=== PATIENT | female | born 1995 ===

== ENCOUNTER 2020-04-01 18:52 | Emergency (ER) | payer OTHER ==
[2020-04-01 19:28] VITALS: BP 129/74
--- NOTE | 2020-04-01 20:03 | ER Document Report ---
ED Medical Screen (RME) - General Chief Complaint: Abscess Stated Complaint: SORE THROAT/ABSCESS ON TONCIL Time Seen by Provider: 04/01/20 19:53 Mode of Arrival: Ambulatory Information source: Patient Notes: HPI; 24-year-old female presents to the emergency room complaining of possible right sided peritonsillar abscess. States she was seen at [facility] twice today on her first visit they gave her IV antibiotics and IV fluids discharged home on oral antibiotics. States she is unable to tolerate the oral antibiotics. Went back to [facility] due to the nausea and vomiting she was referred to the emergency room for further evaluation of peritonsillar abscess. Unsure what antibiotic she is taking. PE: Alert and oriented x3. Mild distress noted. Lungs: Clear to auscultation wit hout rales, rhonchi, wheezes. Heart: Regular rate rhythm without murmurs, rubs, gallops. There is inflammation of the right posterior tonsillar region with a questionable abscess noted. There is no shift of the uvula. There is no trismus. Patient is talking in full sentences. Managing her own secretions. States is able to swallow but is painful. I have greeted and performed a rapid initial assessment of this patient. A comprehensive ED assessment and evaluation of the patient, analysis of test results and completion of the medical decision making process will be conducted by additional ED providers. I have specifically instructed the patient or family members with the patient to immediately return to any nursing staff should anything change in the patient's condition or with their chief complaint. TRAVEL OUTSIDE OF THE [place] IN LAST 30 DAYS: No - Related Data Allergies/Adverse Reactions: amoxicillin [From Augmentin] Allergy (Verified 04/01/20 19:52) clavulanic acid [From Augmentin] Allergy (Verified 04/01/20 19:52) Past Medical History - Social History Frequency of alcohol use: None Drug Abuse: None Physical Exam - Vital signs Vitals: Temp Pulse Resp BP Pulse Ox 99.0 F 118 H 20 129/74 H 99 04/01/20 19:28 04/01/20 19:28 04/01/20 19:28 04/01/20 19:28 04/01/20 19:28 Course - Vital Signs Vital signs: Temp Pulse Resp BP Pulse Ox 99.0 F 118 H 20 129/74 H 99 04/01/20 19:28 04/01/20 19:28 04/01/20 19:28 04/01/20 19:28 04/01/20 19:28
[2020-04-01 20:37] LABS: HEMATOCRIT 46.3 % (36.0-47.0); HEMOGLOBIN 15.7 g/dL (12.0-15.5); MEAN CORPUSCULAR HEMOGLOBIN 32.2 pg (27.0-33.4); MEAN CORPUSCULAR HGB CONC 33.9 g/dL (32.0-36.0); MEAN CORPUSCULAR VOLUME 95 fl (80-97); PLATELET COUNT 250 10^3/uL (150-450); RED BLOOD COUNT 4.88 10^6/uL (3.72-5.28); RED CELL DISTRIBUTION WIDTH 13.2 % (11.5-14.0); WHITE BLOOD COUNT 11.6 10^3/uL (4.0-10.5)
[2020-04-01 21:02] LABS: ABSOLUTE LYMPHOCYTES# (MANUAL) 0.8 10^3/uL (0.5-4.7); ABSOLUTE MONOCYTES # (MANUAL) 0.2 10^3/uL (0.1-1.4); BASOPHILS % (MANUAL) 0 % (0-2); EOSINOPHILS % (MANUAL) 0 % (0-6); LYMPHOCYTES % (MANUAL) 7 % (13-45); MONOCYTES % (MANUAL) 2 % (3-13); RBC MORPHOLOGY COMMENT NORMO-CYTIC/CHROMIC; SEGMENTED NEUTROPHILS % (MAN) 91 % (42-78); TOTAL CELLS COUNTED 100
[2020-04-01 21:03] LABS: ALBUMIN 4.7 g/dL (3.5-5.0); ALKALINE PHOSPHATASE 45 U/L (38-126); ANION GAP 14 (5-19); ASPARTATE AMINO TRANSFERASE 25 U/L (14-36); BILIRUBIN,DIRECT 0.3 mg/dL (0.0-0.4); BILIRUBIN,TOTAL 0.8 mg/dL (0.2-1.3); BLOOD UREA NITROGEN 12 mg/dL (7-20); CALCIUM 9.4 mg/dL (8.4-10.2); CARBON DIOXIDE 23 mmol/L (22-30); CHLORIDE 101 mmol/L (98-107); GLUCOSE 106 mg/dL (75-110); PLATELET COMMENT ADEQUATE; POTASSIUM 4.2 mmol/L (3.6-5.0); TOTAL PROTEIN 7.4 g/dL (6.3-8.2)
== END 2020-04-01 23:04 | disposition left against medical advice (07) ==
LOC: ER 18:52
DX: J36 Peritonsillar abscess (principal)
CPT/HCPCS: 36415; 80053; 84703; 85025; 99281